=== PATIENT | female | born 1965 | race Caucasian/White ===

== ENCOUNTER → 2024-09-06 10:38 | Outpatient (REF) | payer BC, SELFPAY | LOC: WDC 10:38 | PROVIDERS: ATTENDING PHYSICIAN Family Medicine | DX: Z12.31 Encounter for screening mammogram for malignant neoplasm of breast (principal) | CPT/HCPCS: 77063; 77067 ==

== ENCOUNTER → 2025-09-09 08:18 | Outpatient (REF) | payer OTHER, SELFPAY | LOC: WDC 08:18 | PROVIDERS: ATTENDING PHYSICIAN Family Medicine | DX: Z12.31 Encounter for screening mammogram for malignant neoplasm of breast (principal) | CPT/HCPCS: 77063; 77067 ==

== ENCOUNTER → 2025-10-03 08:14 | Outpatient (REF) | payer OTHER, SELFPAY | LOC: WDC 08:14 | PROVIDERS: ATTENDING PHYSICIAN Family Medicine | DX: R92.30 Dense breasts, unspecified (principal) | CPT/HCPCS: 76641 ==